=== PATIENT | male | born 1940 | race Hispanic/Latino ===

== ENCOUNTER → 2019-07-11 | Outpatient (CLI) | payer OTHER | END | disposition home or self-care (01) | LOC: SHCH 12:33 | PROVIDERS: ATTEND Internal Medicine Cardiovascular Disease | DX: I50.22 Chronic systolic (congestive) heart failure (principal) | CPT/HCPCS: 93306; 93356 ==

== ENCOUNTER 2019-08-31 05:54 | Observation (INO) | payer OTHER ==
[2019-08-30 09:10] VITALS: BP 131/68; PULSE 59; RESP 16; TEMP 97.4
--- NOTE | 2019-08-30 10:40 | NUR ---
REPORT CALLED LASHANDA BLAKE FOR DR FLORES AND INFORMED HER OF COUGH AND LAB RESULTS. SHE WILL INFORM MD AND CALL BACK IF ANY NEW ORDER IF THEY DONT CALL IS BECAUSE THEY WILL PROCEED WITH PROCEDURE
--- NOTE | 2019-08-30 11:30 | NUR ---
REPORT RECEIVED CALL BACK FROM LASHANDA BLAKE FOR DR FLORES THEY WILL PROCEED WITH PROCEDURE AND EVAL PT IN AM IN REFERENCE TO CREAT AND COUGH
[2019-08-31] VITALS (9 sets, daily range): BP systolic 104–142; BP diastolic 48–77; PULSE 60–84; RESP 16–18; TEMP 97.3–97.8
[~2019-08-31] VITALS: Ht 157.5 cm; Wt 57.9 kg
[2019-08-31] MEDS ORDERED: SODIUM CHLORIDE 0.9% 1000ML 1,000 ML IV ONE (06:41)
[2019-08-31] MEDS ORDERED: CEFAZOLIN SODIUM 1 GM VIAL ONE (07:18)
[2019-08-31] MEDS ORDERED: BUPIVACAINE/PF 0.25% 30ML VIAL IJ ONE (07:18)
[2019-08-31] MEDS ORDERED: MIDAZOLAM HCL 1 MG/ML 2ML VIAL ONE ×2 (07:18→08:09)
[2019-08-31] MEDS ORDERED: IODIXANOL 320 MG/ML 100 ML VIAL ONE (07:18)
[2019-08-31] MEDS ORDERED: MEPERIDINE-PF 25 MG/ML SYG ONE ×2 (07:19→08:09)
[2019-08-31] MEDS ORDERED: LIDOCAINE HCL 1% MDV 50ML VIAL ONE (07:19)
--- NOTE | 2019-08-31 09:30 | NUR ---
RECEIVED POST AICD PLACEMENT. AAOX4, DENIES PAIUN BUT FOR DISCOMFORT TO LEFT CHEST INCISION SITE. DRESSING INTACT, SLING IN USE. CIRCULATION, MOTION, AND SENSATION INTACT TO LEFT UPPER EXTREMITY. V/S WNL. ORIENTED TO ROOM AND SOROUNDING. FALL PRECAUTUIONS INITIATED.
[2019-08-31] MEDS: FERROUS SULFATE 325 MG TABLET.DR PO SCH (11:05)
[2019-08-31] MEDS: THIAMINE HCL 100 MG TABLET PO SCH (11:05)
[2019-08-31] MEDS: FUROSEMIDE 40 MG TABLET PO SCH ×2 (11:05→17:10)
--- NOTE | 2019-08-31 15:20 | NUR ---
ASSISTED UP TO CHAIR. WELL TOLERATED.
--- NOTE | 2019-08-31 15:59 | NUR ---
1200 patient signed [facility]TON Letter, I faxed [facility] Letter to [phone] and placed in chart under consent tab.
[2019-08-31] MEDS: CEFAZOLIN SODIUM 1 GM VIAL IVP SCH (20:16)
[2019-08-31] MEDS ORDERED: ATORVASTATIN CALCIUM 40 MG TABLET PO SCH (21:00)
[2019-08-31] MEDS: METOPROLOL TARTRATE 25 MG TAB PO SCH (21:49)
[2019-08-31] MEDS: ACETAMINOPHEN-CODEINE 300/30MG TAB PO PRN (21:59)
[2019-09-01] VITALS: BP 128/72; PULSE 67; RESP 19; TEMP 97.9
[2019-09-01 04:40] VITALS: BP 132/74; PULSE 67; RESP 18; TEMP 98
[2019-09-01] MEDS: CEFAZOLIN SODIUM 1 GM VIAL IVP SCH (05:00)
[2019-09-01 07:20] VITALS: BP 141/72; PULSE 67; RESP 18; TEMP 97.7
[2019-09-01] MEDS: FUROSEMIDE 40 MG TABLET PO SCH (08:50)
[2019-09-01] MEDS: FERROUS SULFATE 325 MG TABLET.DR PO SCH (08:50)
[2019-09-01] MEDS: THIAMINE HCL 100 MG TABLET PO SCH (08:50)
[2019-09-01] MEDS: METOPROLOL TARTRATE 25 MG TAB PO SCH (08:50)
[2019-09-01] MEDS: ACETAMINOPHEN-CODEINE 300/30MG TAB PO PRN (08:52)
[2019-09-01] MEDS ORDERED: ASPIRIN 81 MG EC TAB PO SCH (09:00)
[2019-09-01] MEDS ORDERED: SPIRONOLACTONE 25 MG TAB PO SCH (09:00)
[2019-09-01 11:30] VITALS: BP 127/75; PULSE 80; RESP 18; TEMP 98
--- NOTE | 2019-09-01 14:33 | NUR ---
DISCHARGE INSTRUCTIONS GIVEN TO PATIENT AND OVER THE PHONE. MADE AWARE OF FOLLOW UP APPOINTMENTS WITH DR. FLORES AND PCP. MADE AWARE OF LEFT ARM RESTRICTIONS WELL DRESSING CARE, SUPPLIES PROVIDED. ALL HOME MEDICATIONS CONTINUE WITH NO CHANGE. PROVIDED WITH PACEMAKER CARD. PATIENT AT THIS TIME DENIES ANY CHEST PAIN, DENIES SHORTNESS OF BREATH, PATIENT WILL BE PICKED UP BY HIS
== END 2019-09-01 14:45 | disposition home or self-care (01) ==
LOC: DAH 05:54 → DAHIP 05:55 → 4CH 09:40
PROVIDERS: ADMIT Internal Medicine; ATTEND Internal Medicine
DX: I50.22 Chronic systolic (congestive) heart failure (principal); I25.5 Ischemic cardiomyopathy; I25.2 Old myocardial infarction; I25.10 Atherosclerotic heart disease of native coronary artery without angina pectoris; J45.909 Unspecified asthma, uncomplicated; Z86.73 Personal history of transient ischemic attack (TIA), and cerebral infarction without residual deficits; Z95.810 Presence of automatic (implantable) cardiac defibrillator; Z87.891 Personal history of nicotine dependence
CPT/HCPCS: 33249; 36415; 71045; 80048; 85025; 85610; 85730; 93005; A4215; A4216; A4221; A4222; A4223 ×3; A4606; A4663; C1721; C1895 ×2; G0378 ×20; J0690; J2175 ×2; J2250 ×2; J3490 ×2; J7030

== ENCOUNTER → 2019-11-08 | Outpatient (CLI) | payer OTHER ==
[~2019-11-08] MED LIST: ALBUTEROL SULFATE IH; ASPI-556 PO; ATOR40TA71 PO; FERR325T22 PO; FURO40TA5 PO; METO25TA6 PO; ROBAFEN PO; SPIR25TA6 PO; THIA100T75 PO
== END | disposition home or self-care (01) ==
LOC: RAH 13:04
PROVIDERS: ATTEND Internal Medicine
DX: I70.203 Unspecified atherosclerosis of native arteries of extremities, bilateral legs (principal)
CPT/HCPCS: 93925

== ENCOUNTER 2020-03-20 06:07 | Day surgery (SDC) | payer OTHER ==
[~2020-03-20] VITALS: Ht 165.1 cm; Wt 61.2 kg
[~2020-03-20 06:07] MED LIST changes: +LOSA25TA41 PO; -ROBAFEN PO
[2020-03-20] MEDS ORDERED: SODIUM CHLORIDE 0.9% 1000ML 1,000 ML IV ONE (07:02)
[2020-03-20 07:16] VITALS: BP 112/73
[2020-03-20] MEDS ORDERED: MONT10TA96 PO (07:25)
[2020-03-20] MEDS ORDERED: PROPOFOL 10 MG/ML 20ML VIAL IV ONE ×2 (08:04)
[2020-03-20] MEDS ORDERED: LIDOCAINE HCL 1% 20 ML VIAL ONE (08:04)
[2020-03-20] MEDS ORDERED: SODIUM CHLORIDE 0.9% 10 ML VIAL ONE (08:19)
[2020-03-20] MEDS ORDERED: PHENYLEPHRINE HCL 10 MG/ML 1ML VIAL IV ONE (08:19)
[2020-03-20 08:36] VITALS: BP 114/67
[2020-03-20 08:41] VITALS: BP 118/68
[2020-03-20 08:46] VITALS: BP 116/64
== END 2020-03-20 09:10 | disposition home or self-care (01) ==
LOC: ENDO 06:07 → DAH 06:07 → ENDO 09:10
PROVIDERS: ATTEND Internal Medicine Gastroenterology
DX: K92.1 Melena (principal); Z20.828 Contact with and (suspected) exposure to other viral communicable diseases; K55.20 Angiodysplasia of colon without hemorrhage; K25.9 Gastric ulcer, unspecified as acute or chronic, without hemorrhage or perforation; K26.9 Duodenal ulcer, unspecified as acute or chronic, without hemorrhage or perforation; K29.51 Unspecified chronic gastritis with bleeding; K31.89 Other diseases of stomach and duodenum; D64.9 Anemia, unspecified; I11.0 Hypertensive heart disease with heart failure; I25.10 Atherosclerotic heart disease of native coronary artery without angina pectoris; I50.9 Heart failure, unspecified; G40.909 Epilepsy, unspecified, not intractable, without status epilepticus; I25.2 Old myocardial infarction; Z95.0 Presence of cardiac pacemaker; Z95.1 Presence of aortocoronary bypass graft; Z79.82 Long term (current) use of aspirin; Z79.899 Other long term (current) drug therapy
CPT/HCPCS: 43239; 45378; 93005; A4215 ×2; A4221; A4222; A4223; A4606; A4620; A4657; A4663; C9803; J2370; J2704; J7030; U0003

== ENCOUNTER → 2022-01-17 | Outpatient (CLI) | payer OTHER, MEDICARE ==
[~2022-01-17] MED LIST changes: +MONT-39 PO
== END | disposition home or self-care (01) ==
LOC: LAB 12:04
PROVIDERS: ATTEND Physician Assistant
DX: I10 Essential (primary) hypertension (principal)
CPT/HCPCS: 36415; 83735

== ENCOUNTER → 2023-08-05 | Outpatient (CLI) | payer OTHER | END | disposition home or self-care (01) | LOC: SHCH 07:54 | PROVIDERS: ATTEND Internal Medicine Cardiovascular Disease | DX: I25.119 Atherosclerotic heart disease of native coronary artery with unspecified angina pectoris (principal) | CPT/HCPCS: 93306 ==

== ENCOUNTER → 2023-08-14 | Outpatient (CLI) | payer OTHER ==
[2023-08-14] MEDS: REGADENOSON 0.4 MG/5 ML PF SYG IVP ONE (12:03)
== END | disposition home or self-care (01) ==
LOC: SHCH 08:49
PROVIDERS: ATTEND Internal Medicine Cardiovascular Disease
DX: I25.5 Ischemic cardiomyopathy (principal); I42.9 Cardiomyopathy, unspecified
CPT/HCPCS: 78452; 93017; J2785; A9500 ×2; 96374